=== PATIENT | female | born 1955 | race Caucasian/White ===

== ENCOUNTER 2019-11-28 12:57 | Emergency (ER) | payer BC ==
--- NOTE | 2019-11-28 14:17 | RAD REPORT ---
EXAM DESCRIPTION: RAD - Elbow Left 3 View - 11/28/2019 2:11 pm CLINICAL HISTORY: fall Pain COMPARISON: No comparisons FINDINGS: No fracture or dislocation seen.
--- NOTE | 2019-11-28 14:25 | RAD REPORT ---
EXAM DESCRIPTION: RAD - Wrist Left 3 View - 11/28/2019 2:15 pm CLINICAL HISTORY: fall Pain COMPARISON: No comparisons FINDINGS: Mild degenerative changes involve the radiocarpal joint as well as the first carpometacarp al joint. Soft tissue swelling is seen posteriorly. A small nondisplaced triquetrum fracture along t he dorsal aspect is suspected.
--- NOTE | 2019-11-28 16:16 | EDPHYS ---
Physician Documentation [facility] Name: Ana Summers Age: 64 yrs Sex: Female : 1955 Arrival Date: 11/28/2019 Time: 12:59 Bed 27 Private MD: ED Physician Jordon Mario HPI: 11/28 13:51 This 64 yrs old Female presents to ER via Ambulatory with complaints of Arm jmm Injury. 13:51 The patient or guardian complains of injury, pain. Onset: The symptoms/episode jmm began/occurred acutely. 13:52 Modifying factors: The symptoms are alleviated by archana wrap. Associated signs and jmm symptoms: Pertinent positives: swelling. This is a 64 year old female with a history of htn, arthritis, hepatitis that presents to the ED with complaints of left wrist pain which radiates to the left elbow. Patient states she fell on her left side yesterday from a standing position. . Historical: - Allergies: 13:13 PENICILLINS; aj1 - Home Meds: 13:13 Lisinopril Oral [Active]; Naproxen Oral [Active]; aj1 - PMHx: 13:13 Hypertension; Arthritis; Hepatitis; C; aj1 - Immunization history:: Flu vaccine is not up to date. - Social history:: Smoking status: Patient uses tobacco products, smokes one pack cigarettes per day. - Ebola Screening: : Patient denies travel to an Ebola-affected area in the 21 days before illness onset. ROS: 13:52 Constitutional: Negative for fever, chills, and weight loss, Cardiovascular: Negative jmm for chest pain, palpitations, and edema, Respiratory: Negative for shortness of breath, cough, wheezing, and pleuritic chest pain. 13:52 MS/extremity: Positive for injury or acute deformity, pain. 13:52 All other systems are negative. Exam: 13:52 Constitutional: This is a well developed, well nourished patient who is awake, alert, jmm and in no acute distress. Head/Face: atraumatic. Eyes: EOMI, no conjunctival erythema appreciated ENT: Moist Mucus Membranes Neck: Trachea midline, Supple Chest/axilla: Normal chest wall appearance and motion. Cardiovascular: Regular rate and rhythm. No edema appreciated Respiratory: Normal respirations, no respiratory distress appreciated Abdomen/GI: Non distended, soft Back: Normal ROM Skin: General appearance color normal 13:52 Musculoskeletal/extremity: ROM: intact in all extremities, swelling noted to the left wrist, distal radius and ulna are ttp, full radial pulse, compartments are soft, NVI. 13:52 Skin: Appearance: Color: normal in color. 13:52 Neuro: Orientation: is normal, Mentation: is normal, Memory: is normal. 13:52 Psych: Behavior/mood is pleasant, cooperative. Vital Signs: 13:13 BP 145 / 61; Pulse 79; Resp 18; Temp 98.1; Pulse Ox 97% on R/A; Weight 59.42 kg (R); aj1 Height 5 ft. 5 in. (165.10 cm) (R); Pain 0/10; 13:13 Body Mass Index 21.80 (59.42 kg, 165.10 cm) aj Procedures: 16:13 Splinting: Splint applied to left arm using sling, sugar tong. applied by tech. brandon Examined by me, post splint application: neurovascular intact, 2+ distal pulses palpable, brisk capillary refill noted, Patient tolerated well. MDM: 13:44 Patient medically screened. [facility] 16:13 Data reviewed: vital signs, nurses notes. Counseling: I had a detailed discussion with en the patient and/or guardian regarding: the historical points, exam findings, and any diagnostic results supporting the discharge/admit diagnosis, radiology results, the need for outpatient follow up, to return to the emergency department if symptoms worsen or persist or if there are any questions or concerns that arise at home. ED course: Patient advised to follow up with hand surgery for reevaluation. Patient otherwise given strict return precautions. Patient understood and agrees with the plan of care. . 11/28 13:23 Order name: Wrist Left (3 View) XRAY; Complete Time: 14:41 [facility] 11/28 13:23 Order name: Elbow Left 3 View XRAY; Complete Time: 14:41 [facility] 11/28 15:25 Order name: Sugar Tong Forearm Splint; Complete Time: 16:20 [facility] 11/28 15:25 Order name: Sling; Complete Time: 16:20 [facility] Administered Medications: No medications were administered Disposition: 16:54 Co-signature as Attending Physician, Jordon Mario MD I agree with the assessment and kdr plan of care. Disposition: 11/28/19 16:15 Discharged to Home. Impression: Nondisplaced fracture of triquetrum [cuneiform] bone, left wrist. - Condition is Stable. - Discharge Instructions: Wrist Pain. - Medication Reconciliation Form, Thank You Letter, Antibiotic Education, Prescription Opioid Use form. - Follow up: Noman Goetz MD; When: 2 - 3 days; Reason: Recheck today's complaints, Continuance of care, Re-evaluation by your physician. Follow up: Darvin Meraz MD; When: 2 - 3 days; Reason: Recheck today's complaints, Continuance of care, Re-evaluation by your physician. Signatures: Dispatcher [employer] EDMS Letty Sorensen RN RN aj1 Jordon Mario MD MD kdr Mickail, Joel, PA PA jmm Corrections: (The following items were deleted from the chart) 13:13 13:13 Social history: Smoking status: Patient/guardian denies using tobacco, aj1 aj1 16:24 16:15 11/28/2019 16:15 Discharged to Home. Impression: Nondisplaced fracture of aj1 triquetrum [cuneiform] bone, left wrist. Condition is Stable. Forms are Medication Reconciliation Form, Thank You Letter, Antibiotic Education, Prescription Opioid Use. Follow up: Noman Goetz; When: 2 - 3 days; Reason: Recheck today's complaints, Continuance of care, Re-evaluation by your physician. Follow up: Darvin Meraz; When: 2 - 3 days; Reason: Recheck today's complaints, Continuance of care, Re-evaluation by your physician. karen
--- NOTE | 2019-11-28 16:16 | ER ---
Nurse's Notes [facility] Name: Ana Summers Age: 64 yrs Sex: Female : 1955 Arrival Date: 11/28/2019 Time: 12:59 Bed 27 Private MD: Diagnosis: Nondisplaced fracture of triquetrum [cuneiform] bone, left wrist Presentation: 11/28 13:11 Presenting complaint: Patient states: She fell yesterday while trying to put some aj1 boards up on her porch. Reports that she landed on her left side and now she is having pain to her left forearm that is worse with movement. Swelling noted to left wrist. Transition of care: patient was not received from another setting of care. Onset of symptoms was 2019. Risk Assessment: Do you want to hurt yourself or someone else? Patient reports no desire to harm self or others. Initial Sepsis Screen: Does the patient meet any 2 criteria? No. Patient's initial sepsis screen is negative. Does the patient have a suspected source of infection? No. Patient's initial sepsis screen is negative. Care prior to arrival: None. 13:11 Method Of Arrival: Ambulatory aj 13:11 Acuity: CODEY 4 aj1 Triage Assessment: 13:13 General: Appears in no apparent distress. comfortable, Behavior is calm, cooperative, aj1 appropriate for age. Pain: Complains of pain in dorsal aspect of left forearm and palmar aspect of left forearm Pain currently is 0 out of 10 on a pain scale. at worst was 5 out of 10 on a pain scale. Musculoskeletal: Range of motion: intact in all extremities. Injury Description: Patient reports that she fell while trying to put boards up on her porch. Historical: - Allergies: 13:13 PENICILLINS; aj1 - Home Meds: 13:13 Lisinopril Oral [Active]; Naproxen Oral [Active]; aj1 - PMHx: 13:13 Hypertension; Arthritis; Hepatitis; C; aj1 - Immunization history:: Flu vaccine is not up to date. - Social history:: Smoking status: Patient uses tobacco products, smokes one pack cigarettes per day. - Ebola Screening: : Patient denies travel to an Ebola-affected area in the 21 days before illness onset. Screenin:15 Abuse screen: Denies threats or abuse. Denies injuries from another. Nutritional aj1 screening: No deficits noted. Tuberculosis screening: No symptoms or risk factors identified. 16:20 Fall Risk None identified. aj1 Assessment: 13:15 General: Appears in no apparent distress. comfortable, Behavior is calm, cooperative, aj1 appropriate for age. Pain: Complains of pain in palmar aspect of left forearm and dorsal aspect of left forearm Pain radiates to left arm Pain currently is 0 out of 10 on a pain scale. at worst was 5 out of 10 on a pain scale. Aggravated by repositioning. Neuro: Level of Consciousness is awake, alert, obeys commands, Oriented to person, place, time, situation. Cardiovascular: Patient's skin is warm and dry. Respiratory: Airway is patent Respiratory effort is even, unlabored, Respiratory pattern is regular, symmetrical. GI: No signs and/or symptoms were reported involving the gastrointestinal system. : No signs and/or symptoms were reported regarding the genitourinary system. EENT: No signs and/or symptoms were reported regarding the EENT system. Derm: No signs and/or symptoms reported regarding the dermatologic system. Skin is pink, warm \T\ dry. normal. Musculoskeletal: Circulation, motion, and sensation intact. Range of motion: intact in all extremities, Swelling present in left wrist. 14:12 Reassessment: Patient appears in no apparent distress at this time. No changes from aj1 previously documented assessment. Patient and/or family updated on plan of care and expected duration. Pain level reassessed. Patient is alert, oriented x 3, equal unlabored respirations, skin warm/dry/pink. 15:16 Reassessment: Patient appears in no apparent distress at this time. No changes from aj1 previously documented assessment. Patient and/or family updated on plan of care and expected duration. Pain level reassessed. Patient is alert, oriented x 3, equal unlabored respirations, skin warm/dry/pink. 16:15 Reassessment: Patient appears in no apparent distress at this time. No changes from aj1 previously documented assessment. Patient and/or family updated on plan of care and expected duration. Pain level reassessed. Patient is alert, oriented x 3, equal unlabored respirations, skin warm/dry/pink. Vital Signs: 13:13 BP 145 / 61; Pulse 79; Resp 18; Temp 98.1; Pulse Ox 97% on R/A; Weight 59.42 kg (R); aj1 Height 5 ft. 5 in. (165.10 cm) (R); Pain 0/10; 13:13 Body Mass Index 21.80 (59.42 kg, 165.10 cm) aj1 ED Course: 12:59 Patient arrived in ED. rg4 13:04 Saman Guy PA is PHCP. [facility] 13:04 Jordon Mario MD is Attending Physician. [facility] 13:11 Letty Sorensen, RN is Primary Nurse. aj1 13:12 Triage completed. aj1 13:13 Arm band placed on Patient placed in an exam room. aj1 13:15 Patient has correct armband on for positive identification. Bed in low position. Call aj1 light in reach. 13:15 No provider procedures requiring assistance completed. aj1 14:11 Wrist Left (3 View) XRAY In Process Unspecified. EDMS 14:11 Elbow Left 3 View XRAY In Process Unspecified. EDMS 16:14 Noman Goetz MD is Referral Physician. jmm 16:14 Darvin Meraz MD is Referral Physician. jm 16:19 Orthoglass splint: Sugar tong splint applied on left arm. Sling applied to left arm. lt1 16:20 Patient did not have IV access during this emergency room visit. aj1 Administered Medications: No medications were administered Outcome: 16:15 Discharge ordered by MD. jm 16:23 Discharged to home ambulatory. aj1 16:23 Condition: good 16:23 Discharge instructions given to patient, Instructed on discharge instructions, follow up and referral plans. splint care Demonstrated understanding of instructions, follow-up care, splint care. 16:24 Patient left the ED. aj1 Signatures: Dispatcher [employer] EDMS Letty Sorensen, RN RN aj1 Saman Guy PA PA Sylvia Araujo rg4 Cherie Horner [facility] Corrections: (The following items were deleted from the chart) 13:13 13:13 Social history: Smoking status: Patient/guardian denies using tobacco, aj1 aj1
[2019-11-28 16:30] VITALS: BP 145/61; TEMP 98.1; O2SAT 97
== END 2019-11-28 16:24 | disposition home or self-care (01) ==
LOC: ER 12:57
PROC: 2W3DX1Z Immobilization of Left Lower Arm using Splint (ICD-10-PCS; principal; 2019-11-28)
DX: S62.115A Nondisplaced fracture of triquetrum [cuneiform] bone, left wrist, initial encounter for closed fracture (principal); W19.XXXA Unspecified fall, initial encounter; Y93.9 Activity, unspecified; Y92.9 Unspecified place or not applicable; Z88.0 Allergy status to penicillin; F17.210 Nicotine dependence, cigarettes, uncomplicated; I10 Essential (primary) hypertension
CPT/HCPCS: 99283

== ENCOUNTER 2023-01-03 09:37 | Emergency (ER) | payer BC, MEDICARE ==
--- OUTSIDE RECORDS SUMMARY | 2023-01-03 09:42 | XMS REPORT | Continuity of Care Document ---
:1955 Author Organization [facility] t Address [facility] [place] [address] Care Team Providers Name Role Phone MARIAMA BARLOW Attending Clinician Unavailable Abdelrahman STEVE, Zhou Shepard Attending Clinician Deejay Guthrie Attending Clinician [facility] Attending Clinician Unavailable DEEJAY HUFF Attending Clinician Unavailable KAE DIAZ Attending Clinician Unavailable Ricardo Shirley MD Attending Clinician Maurice Maldonado Attending Clinician Doctor Unassigned, [place] Attending Clinician Unavailable Ramírez Delacruz MD Attending Clinician Walter Marin MD Attending Clinician WALTER MARIN Attending Clinician Unavailable Payers Payer Name Policy Type Policy Number Effective Date Expiration Date S [facility] [id number] 2021 (MEDICARE 00:00:00 REPLACEMENT HMO) Problems Condition Condition Condition Status Onset Resolution Last Treating Co mments Source Name Details Category Date Date Treatment Clinician Date History of History of Disease Active 2017-11 U nivers hepatitis hepatitis 2-12 ity of C C 00:00: [address] Tobacco Tobacco Disease Active 2017-11 Univers abuse abuse 2-12 ity of 00:00: [address] Essential Essential Disease Active 2017-11 Uni vers hypertensi hypertensi 2-12 it y of on on 00:00: [address] H/O H/O Disease Active Overview: Univer s colonoscop colonoscop 12-17 Outside i ty of y y 00:00: records, [place] 00 reported Medical normal. Branch Allergies, Adverse Reactions, Alerts Allergy Allergy Status Severity Reaction(s) Onset Inactive Treating Comm ents Source Name Type Date Date Clinician PENICILL DRUG Active Unknown-Cmnt Un kal IN G INGREDI 12-17 ity of 00:00: [place] 00 Medical Branch Penicill Propensi Active Unknown - Uni vers in G ty to See comments 12-17 ity of adverse 00:00: [place] reaction 00 Medical s to Branch drug Social History Social Habit Start Date Stop Date Quantity Comments Source Exposure to Not sure [facility] SARS-CoV-2 (event) [facility] History of tobacco Cigarette Smoker University of use [facility] Sex Assigned At Universit y of [facility] Tobacco use and 2020-09-24 2020-09-24 Current user Univers ity of exposure 00:00:00 00:00:00 [facility] Cigarettes smoked 2020-09-24 2020-09-24 Univers ity of current (pack per 00:00:00 00:00:00 [place] ) - Reported Branch Alcohol intake 2020-09-24 2020-09-24 Current drinker Unive rsity of 00:00:00 00:00:00 of alcohol [facility] (finding) [place] Alcohol Comment 2012-12-17 2012-12-17 beer Universit y of 00:00:00 00:00:00 [facility] Smoking Status Start Date Stop Date Source Current every day smoker 2020-09-24 00:00:00 Uni versity of [facility] Medications Ordered Filled Start Stop Current Ordering Indication Dosage Frequency Signature Comments Components Source Medication Medication Date Date Medication? Clinician (SIG) Name Name naproxen 2019-11 Yes 250mg Take 250 Univ ers 250 mg 1-04 mg by ity of tablet 16:45: mouth 2 [place] 29 (two) Medical times Branch daily with meals. naproxen 2019-11 Yes 250mg Take 250 Univ ers 250 mg 1-04 mg by ity of tablet 16:45: mouth 2 [place] 29 (two) Medical times Branch daily with meals. naproxen 2019-11 Yes 250mg Take 250 Univ ers 250 mg 1-04 mg by ity of tablet 16:45: mouth 2 [place] 29 (two) Medical times Branch daily with meals. naproxen 2019-11 Yes 250mg Take 250 Univ ers 250 mg 1-04 mg by ity of tablet 16:45: mouth 2 [place] 29 (two) Medical times Branch daily with meals. naproxen 2019-11 Yes 250mg Take 250 Univ ers 250 mg 1-04 mg by ity of tablet 16:45: mouth 2 [place] 29 (two) Medical times Branch daily with meals. naproxen 2019-11 Yes 250mg Take 250 Univ ers 250 mg 1-04 mg by ity of tablet 16:45: mouth 2 [place] 29 (two) Medical times Branch daily with meals. lisinopriL- 2019-11 Yes [id number] 1{tbl} Take 1 Univers hydrochloro 1-04 tablet by ity of thiazide 00:00: mouth [place] 20-25 mg 00 daily. Medical per tablet Branch lisinopriL- 2019-11 Yes [id number] 1{tbl} Take 1 Univers hydrochloro 1-04 tablet by ity of thiazide 00:00: mouth [place] 20-25 mg 00 daily. Medical per tablet Branch lisinopriL- 2019-11 Yes [id number] 1{tbl} Take 1 Univers hydrochloro 1-04 tablet by ity of thiazide 00:00: mouth [place] 20-25 mg 00 daily. Medical per tablet Branch lisinopriL- 2019-11 Yes [id number] 1{tbl} Take 1 Univers hydrochloro 1-04 tablet by ity of thiazide 00:00: mouth [place] 20-25 mg 00 daily. Medical per tablet Branch lisinopriL- 2019-11 Yes [id number] 1{tbl} Take 1 Univers hydrochloro 1-04 tablet by ity of thiazide 00:00: mouth [place] 20-25 mg 00 daily. Medical per tablet Branch lisinopriL2019-11 Yes [id number] 1{tbl} Take 1 Univers hydrochloro 1-04 tablet by ity of thiazide 00:00: mouth [place] 20-25 mg 00 daily. Medical per tablet Branch LISINOPRIL2018-11 Yes TAKE 1 Univ ers HYDROCHLORO 2-04 TABLET BY ity of THIAZIDE 00:00: MOUTH [place] 20-25 mg 00 EVERY DAY Medica l per tablet Branch LISINOPRIL- 2018-11 Yes TAKE 1 Univ ers HYDROCHLORO 2-04 TABLET BY ity of THIAZIDE 00:00: MOUTH [place] 20-25 mg 00 EVERY DAY Medica l per tablet Branch LISINOPRIL- 2018-11 Yes TAKE 1 Univ ers HYDROCHLORO 2-04 TABLET BY ity of THIAZIDE 00:00: MOUTH [place] 20-25 mg 00 EVERY DAY Medica l per tablet Branch LISINOPRIL- 2018-11 Yes TAKE 1 Univ ers HYDROCHLORO 2-04 TABLET BY ity of THIAZIDE 00:00: MOUTH [place] 20-25 mg 00 EVERY DAY Medica l per tablet Branch LISINOPRIL- 2018-11 Yes TAKE 1 Univ ers HYDROCHLORO 2-04 TABLET BY ity of THIAZIDE 00:00: MOUTH [place] 20-25 mg 00 EVERY DAY Medica l per tablet Branch LISINOPRIL- 2018-11 Yes TAKE 1 Univ ers HYDROCHLORO 2-04 TABLET BY ity of THIAZIDE 00:00: MOUTH [place] 20-25 mg 00 EVERY DAY Medica l per tablet Branch LISINOPRIL- 2018-11 Yes TAKE 1 Univ ers HYDROCHLORO 2-04 TABLET BY ity of THIAZIDE 00:00: MOUTH [place] 20-25 mg 00 EVERY DAY Medica l per tablet Branch LISINOPRIL- 2018-11 Yes TAKE 1 Univ ers HYDROCHLORO 2-04 TABLET BY ity of THIAZIDE 00:00: MOUTH [place] 20-25 mg 00 EVERY DAY Medica l per tablet Branch LISINOPRIL- 2018-11 Yes TAKE 1 Univ ers HYDROCHLORO 2-04 TABLET BY ity of THIAZIDE 00:00: MOUTH [place] 20-25 mg 00 EVERY DAY Medica l per tablet Branch LISINOPRIL- 2018-11 2020- No TAKE 1 Uni vers HYDROCHLORO 2-04 11-04 TABLET BY it y of THIAZIDE 00:00: 00:00 MOUTH [place] 20-25 mg 00 :00 EVERY DAY Medica l per tablet Branch LISINOPRIL- 2018-11 2020- No TAKE 1 Uni vers HYDROCHLORO 2-04 11-04 TABLET BY it y of THIAZIDE 00:00: 00:00 MOUTH [place] 20-25 mg 00 :00 EVERY DAY Medica l per tablet Branch cholestyram 2018-11 Yes [id number] 4g Take 1 Univers ine light 2-02 Packet by ity o f (CHOLESTYRA 00:00[place] MINE LIGHT[place] 00 needed for Me dical 4 gram Itching Branch powder (take when itching 2hours apart from other meds). cholestyram 2018-11 Yes [id number] 4g Take 1 Univers ine light 2-02 Packet by ity o f (CHOLESTYRA [place] MINE LIGHT[place] 00 needed for Me dical 4 gram Itching Branch powder (take when itching 2hours apart from other meds). cholestyram 2018-11 Yes [id number] 4g Take 1 Univers ine light 2-02 Packet by ity o f (CHOLESTYRA [place] MINE LIGHT[place] 00 needed for Me dical 4 gram Itching Branch powder (take when itching 2hours apart from other meds). cholestyram 2018-11 Yes [id number] 4g Take 1 Univers ine light 2-02 Packet by ity o f (CHOLESTYRA 00:[place]: [place] MINE LIGHT[place] 00 needed for Me dical 4 gram Itching Branch powder (take when itching 2hours apart from other meds). cholestyram 2018-11 Yes [id number] 4g Take 1 Univers ine light 2-02 Packet by ity o f (CHOLESTYRA 00:[place]: [place] M[place] LIGHT[place] 00 needed for Me dical 4 gram Itching Branch powder (take when itching 2hours apart from other meds). cholestyram 2018-11 Yes [id number] 4g Take 1 Univers ine light 2-02 Packet by ity o f (CHOLESTYRA [place]: [place] MINE LIGHT[place] 00 needed for Me dical 4 gram Itching Branch powder (take when itching 2hours apart from other meds). cholestyram 2018-11 Yes [id number] 4g Take 1 Univers ine light 2-02 Packet by ity o f (CHOLESTYRA [place]: [place] MINE LIGHT[place] 00 needed for Me dical 4 gram Itching Branch powder (take when itching 2hours apart from other meds). cholestyram 2018-11 Yes [id number] 4g Take 1 Univers ine light 2-02 Packet by ity o f (CHOLESTYRA 00:[place]: [place] MINE LIGHT[place] 00 needed for Me dical 4 gram Itching Branch powder (take when itching 2hours apart from other meds). cholestyram 2018-11 Yes [id number] 4g Take 1 Univers ine light 2-02 Packet by ity o f (CHOLESTYRA [place]: [place] MINE LIGHT[place] 00 needed for Me dical 4 gram Itching Branch powder (take when itching 2hours apart from other meds). cholestyram 2018-11 Yes [id number] 4g Take 1 Univers ine light 2-02 Packet by ity o f (CHOLESTYRA [place]: [place] MINE LIGHT[place] 00 needed for Me dical 4 gram Itching Branch powder (take when itching 2hours apart from other meds). cholestyram 2018-11 Yes [id number] 4g Take 1 Univers ine light 2-02 Packet by ity o f (CHOLESTYRA [place]: [place] MINE LIGHT[place] 00 needed for Me dical 4 gram Itching Branch powder (take when itching 2hours apart from other meds). cholestyram 2018-11 Yes [id number] 4g Take 1 Univers ine light 2-02 Packet by ity o f (CHOLESTYRA 00:00: [place] MINE LIGHT[place] 00 needed for Me dical 4 gram Itching Branch powder (take when itching 2hours apart from other meds). cholestyram 2018-11 Yes [id number] 4g Take 1 Univers ine light 2-02 Packet by ity o f (CHOLESTYRA 00:00: [place] MINE LIGHT[place] 00 needed for Me dical 4 gram Itching Branch powder (take when itching 2hours apart from other meds). cholestyram 2018-11 Yes [id number] 4g Take 1 Univers ine light 2-02 Packet by ity o f (CHOLESTYRA [place]: [place] MINE LIGHT[place] 00 needed for Me dical 4 gram Itching Branch powder (take when itching 2hours apart from other meds). cholestyram 2018-11 Yes [id number] 4g Take 1 Univers ine light 2-02 Packet by ity o f (CHOLESTYRA 00:[place]: [place] MINE LIGHT[place] 00 needed for Me dical 4 gram Itching Branch powder (take when itching 2hours apart from other meds). naproxen Yes 250mg Take 250 Univ ers 250 mg 2-06 mg by ity of tablet 19:35: mouth 2 [place] 09 (two) Medical times Branch daily with meals. naproxen 0 Yes 250mg Take 250 Univ ers 250 mg 2-06 mg by ity of tablet 19:35: mouth 2 (two) Medical times Branch daily with meals. naproxen 2019-0 Yes 250mg Take 250 Univ ers 250 mg 2-06 mg by ity of tablet 19:35: mouth 2 (two) Medical times Branch daily with meals. naproxen 2019-0 Yes 250mg Take 250 Univ ers 250 mg 2-06 mg by ity of tablet 19:35: mouth 2 (two) Medical times Branch daily with meals. naproxen 2019-0 Yes 250mg Take 250 Univ ers 250 mg 2-06 mg by ity of tablet 19:35: mouth 2 (two) Medical times Branch daily with meals. naproxen 2019-0 Yes 250mg Take 250 Univ ers 250 mg 2-06 mg by ity of tablet 19:35: mouth 2 (two) Medical times Branch daily with meals. naproxen 2019-0 Yes 250mg Take 250 Univ ers 250 mg 2-06 mg by ity of tablet 19:35: mouth 2 (two) Medical times Branch daily with meals. naproxen 2019-0 Yes 250mg Take 250 Univ ers 250 mg 2-06 mg by ity of tablet 19:35: mouth 2 (two) Medical times Branch daily with meals. naproxen 2019-0 Yes 250mg Take 250 Univ ers 250 mg 2-06 mg by ity of tablet 19:35: mouth 2 (two) Medical times Branch daily with meals. albuterol 2017-11 Yes 2{puff} Inhale 2 U nivers (PROAIR 2-31 Puffs ity of HFA) 90 00:00: every 4 [place] mcg/actuati 00 (four) Medica l on inhaler hours as Branc h needed for Wheezing or Shortness of Breath. albuterol 2017-11 Yes 2{puff} Inhale 2 U nivers (PROAIR 2-31 Puffs ity of HFA) 90 00:00: every 4 [place] mcg/actuati 00 (four) Medica l on inhaler hours as Branc h needed for Wheezing or Shortness of Breath. albuterol 2017-11 Yes 2{puff} Inhale 2 U nivers (PROAIR 2-31 Puffs ity of HFA) 90 00:00: every 4 [place] mcg/actuati 00 (four) Medica l on inhaler hours as Branc h needed for Wheezing or Shortness of Breath. albuterol 2017-11 Yes 2{puff} Inhale 2 U nivers (PROAIR 2-31 Puffs ity of HFA) 90 00:00: every 4 [place] mcg/actuati 00 (four) Medica l on inhaler hours as Branc h needed for Wheezing or Shortness of Breath. albuterol 2017-11 Yes 2{puff} Inhale 2 U nivers (PROAIR 2-31 Puffs ity of HFA) 90 00:00: every 4 [place] mcg/actuati 00 (four) Medica l on inhaler hours as Branc h needed for Wheezing or Shortness of Breath. albuterol 2017-11 Yes 2{puff} Inhale 2 U nivers (PROAIR 2-31 Puffs ity of HFA) 90 00:00: every 4 [place] mcg/actuati 00 (four) Medica l on inhaler hours as Branc h needed for Wheezing or Shortness of Breath. albuterol 2017-11 Yes 2{puff} Inhale 2 U nivers (PROAIR 2-31 Puffs ity of HFA) 90 00:00: every 4 [place] mcg/actuati 00 (four) Medica l on inhaler hours as Branc h needed for Wheezing or Shortness of Breath. albuterol 2017-11 Yes 2{puff} Inhale 2 U nivers (PROAIR 2-31 Puffs ity of HFA) 90 00:00: every 4 [place] mcg/actuati 00 (four) Medica l on inhaler hours as Branc h needed for Wheezing or Shortness of Breath. albuterol 2017-11 Yes 2{puff} Inhale 2 U nivers (PROAIR 2-31 Puffs ity of HFA) 90 00:00: every 4 [place] mcg/actuati 00 (four) Medica l on inhaler hours as Branc h needed for Wheezing or Shortness of Breath. albuterol 2017-11 Yes 2{puff} Inhale 2 U nivers (PROAIR 2-31 Puffs ity of HFA) 90 00:00: every 4 [place] mcg/actuati 00 (four) Medica l on inhaler hours as Branc h needed for Wheezing or Shortness of Breath. albuterol 2017-11 Yes 2{puff} Inhale 2 U nivers (PROAIR 2-31 Puffs ity of HFA) 90 00:00: every 4 [place] mcg/actuati 00 (four) Medica l on inhaler hours as Branc h needed for Wheezing or Shortness of Breath. albuterol 2017-11 Yes 2{puff} Inhale 2 U nivers (PROAIR 2-31 Puffs ity of HFA) 90 00:00: every 4 [place] mcg/actuati 00 (four) Medica l on inhaler hours as Branc h needed for Wheezing or Shortness of Breath. albuterol 2017-11 Yes 2{puff} Inhale 2 U nivers (PROAIR 2-31 Puffs ity of HFA) 90 00:00: every 4 [place] mcg/actuati 00 (four) Medica l on inhaler hours as Branc h needed for Wheezing or Shortness of Breath. albuterol 2017-11 Yes 2{puff} Inhale 2 U nivers (PROAIR 2-31 Puffs ity of HFA) 90 00:00: every 4 [place] mcg/actuati 00 (four) Medica l on inhaler hours as Branc h needed for Wheezing or Shortness of Breath. albuterol 2017-11 Yes 2{puff} Inhale 2 U nivers (PROAIR 2-31 Puffs ity of HFA) 90 00:00: every 4 [place] mcg/actuati 00 (four) Medica l on inhaler hours as Branc h needed for Wheezing or Shortness of Breath. Immunizations Ordered Filled Immunization Date Status Comments Sour e Immunization Name Name Twinrix (hep a/hep 2019-10-22 Completed Univer sity of b) 00:00:00 [facility] Twinrix (hep a/hep 2019-10-22 Completed Univer sity of b) 00:00:00 [facility] Twinrix (hep a/hep 2019-10-22 Completed Univer sity of b) 00:00:00 [facility] Twinrix (hep a/hep 2019-10-22 Completed Univer sity of b) 00:00:00 [facility] Twinrix (hep a/hep 2019-10-22 Completed Univer sity of b) 00:00:00 [place] [facility] Twinrix (hep a/hep 2019-10-22 Completed Univer sity of b) 00:00:00 [place] [facility] Twinrix (hep a/hep 2019-10-22 Completed Univer sity of b) 00:00:00 [place] [facility] Twinrix (hep a/hep 2019-10-22 Completed Univer sity of b) 00:00:00 [place] [facility] Twinrix (hep a/hep 2019-10-22 Completed Univer sity of b) 00:00:00 [place] [facility] Twinrix (hep a/hep 2019-10-22 Completed Univer sity of b) 00:00:00 [place] [facility] Twinrix (hep a/hep 2019-10-22 Completed Univer sity of b) 00:00:00 [facility] Branch Twinrix (hep a/hep 2019-10-22 Completed Univer sity of b) 00:00:00 [place] [facility] Twinrix (hep a/hep 2019-10-22 Completed Univer sity of b) 00:00:00 [place] [facility] Twinrix (hep a/hep 2019-10-22 Completed Univer sity of b) 00:00:00 [place] [facility] Twinrix (hep a/hep 2019-10-22 Completed Univer sity of b) 00:00:00 [facility] Branch Twinrix (hep a/hep 2019-05-14 Completed Univer sity of b) 00:00:00 [place] [facility] Twinrix (hep a/hep 2019-05-14 Completed Univer sity of b) 00:00:00 [place] [facility] Twinrix (hep a/hep 2019-05-14 Completed Univer sity of b) 00:00:00 [place] [facility] Twinrix (hep a/hep 2019-05-14 Completed Univer sity of b) 00:00:00 [place] [facility] Twinrix (hep a/hep 2019-05-14 Completed Univer sity of b) 00:00:00 [facility] Branch Twinrix (hep a/hep 2019-05-14 Completed Univer sity of b) 00:00:00 [place] [facility] Twinrix (hep a/hep 2019-05-14 Completed Univer sity of b) 00:00:00 [place] [facility] Twinrix (hep a/hep 2019-05-14 Completed Univer sity of b) 00:00:00 [place] [facility] Twinrix (hep a/hep 2019-05-14 Completed Univer sity of b) 00:00:00 [place] [facility] Twinrix (hep a/hep 2019-05-14 Completed Univer sity of b) 00:00:00 [place] [facility] Twinrix (hep a/hep 2019-05-14 Completed Univer sity of b) 00:00:00 [place] [facility] Twinrix (hep a/hep 2019-05-14 Completed Univer sity of b) 00:00:00 [facility] Branch Twinrix (hep a/hep 2019-05-14 Completed Univer sity of b) 00:00:00 [facility] Branch Twinrix (hep a/hep 2019-05-14 Completed Univer sity of b) 00:00:00 [facility] Branch Twinrix (hep a/hep 2019-05-14 Completed Univer sity of b) 00:00:00 [facility] Branch Twinrix (hep a/hep 2019-04-11 Completed Univer sity of b) 00:00:00 [facility] Branch Twinrix (hep a/hep 2019-04-11 Completed Univer sity of b) 00:00:00 [facility] Branch Twinrix (hep a/hep 2019-04-11 Completed Univer sity of b) 00:00:00 [facility] Branch Twinrix (hep a/hep 2019-04-11 Completed Univer sity of b) 00:00:00 [place] [facility] Twinrix (hep a/hep 2019-04-11 Completed Univer sity of b) 00:00:00 [facility] Branch Twinrix (hep a/hep 2019-04-11 Completed Univer sity of b) 00:00:00 [facility] Branch Twinrix (hep a/hep 2019-04-11 Completed Univer sity of b) 00:00:00 [facility] Branch Twinrix (hep a/hep 2019-04-11 Completed Univer sity of b) 00:00:00 [facility] Branch Twinrix (hep a/hep 2019-04-11 Completed Univer sity of b) 00:00:00 [facility] Branch Twinrix (hep a/hep 2019-04-11 Completed Univer sity of b) 00:00:00 [place] [facility] Twinrix (hep a/hep 2019-04-11 Completed Univer sity of b) 00:00:00 [place] [facility] Twinrix (hep a/hep 2019-04-11 Completed Univer sity of b) 00:00:00 [facility] Branch Twinrix (hep a/hep 2019-04-11 Completed Univer sity of b) 00:00:00 [facility] Branch Twinrix (hep a/hep 2019-04-11 Completed Univer sity of b) 00:00:00 [facility] Branch Twinrix (hep a/hep 2019-04-11 Completed Univer sity of b) 00:00:00 [facility] Vital Signs Vital Name Observation Time Observation Value Comments Source Systolic blood 2020-09-24 16:46:00 172 mm[Hg] Univer sity of pressure [facility] Diastolic blood 2020-09-24 16:46:00 78 mm[Hg] Unive rsity of pressure [facility] Heart rate 2020-09-24 16:46:00 96 /min Universi ty [facility] Body temperature 2020-09-24 16:38:00 36.5 Bernarda Univ ersity of [facility] Body height 2020-09-24 16:38:00 165.1 cm Universi ty [facility] Body weight 2020-09-24 16:38:00 56.518 kg Universi ty [facility] BMI 2020-09-24 16:38:00 20.73 kg/m2 Universi ty [facility] Body height 2020-01-14 21:50:00 165.1 cm Universi ty of [facility] Body weight 2020-01-14 21:50:00 59.421 kg Universi ty [facility] BMI 2020-01-14 21:50:00 21.80 kg/m2 Universi ty [facility] Systolic blood 2019-12-06 15:04:00 156 mm[Hg] Univer sity of pressure [facility] Diastolic blood 2019-12-06 15:04:00 74 mm[Hg] Unive rsity of pressure [facility] Heart rate 2019-12-06 15:04:00 103 /min Universi ty [facility] Respiratory rate 2019-12-06 15:04:00 18 /min [facility] Body height 2019-12-06 15:04:00 165.1 cm [facility] Body weight 2019-12-06 15:04:00 59.421 kg [facility] BMI 2019-12-06 15:04:00 21.80 kg/m2 [facility] Procedures Procedure Date / Time Performed Performing Clinician Sourc e DISABILITY/FMLA 2020-01-24 06:01:00 Doctor Unassigned, [facility] Encounters Start End Encounter Admission Attending Care Care Encounter Source Date/Time Date/Time Type Type Clinicians Facility Department ID 2023-01-01 2023-01-02 Emergency E YEN, SALLIENE [facility] [id number] [facility] 15:49:00 00:30:00 MARIAMA 2022-06-04 2022-06-04 Outpatient [facility] [id number] [facility] 03:33:00 03:33:00 0715 Medica l Group 2021-10-30 2021-10-30 Outpatient [facility] [id number] [facility] 01:00:00 01:00:00 1210 Medica l Group 2020-12-16 2020-12-[address] [facility] [id number] Univers 00:00:00 00:00:00 Zhou Y HEALTH [id number] i ty of [facility] [id number] [address] 2020-09-26 2020-09-[address] [facility] [id number] Univers 00:00:00 00:00:00 Deejay Y HEALTH [id number] i [id number] [id number] [address] 2020-09-24 2020-09-24 Bark Scaler [facility] UNIVERSIT [id number] Univers 12:14:59 12:29:59 Visit Refugio Deejay Y HEALTH [id number] ity of [id number] [id number] [facility] [address] [place] 2020-09-24 2020-09-24 Office ELISA Huff [id number] Univers 10:35:11 12:10:01 Visit [facility] [id number] i ty of [id number] [id number] [place] [id number] [place] 2020-09-24 2020-09-24 Outpatient R REFUGIO [facility] [id number] Univers 11:00:00 11:00:00 [facility] 2020-09-24 2020-09-24 Letter ELISA [place] 1..840.114 [id number] Univers 00:00:00 00:00:00 (Out) [facility] [id number] i ty [id number] [id number] [address] 2020-05-19 2020-05-19 Outpatient R REFUGIO [facility] [id number] Univers 11:00:00 11:00:00 [facility] 2020-04-23 2020-04-23 Outpatient Mitesh DIAZ [facility] [id number] Univers 13:00:00 13:00:00 KAE ordonez [facility] 2020-02-22 2020-02-22 Ricardo Almeida [facility] [id number] Univers 00:00:00 00:00:00 Radha Avila [id number] [place] Profess[place] [id number] Id dical nal 044 [facility] 2020-01-28 2020-01-28 Telephone Mason [facility] [id number] Univers 00:00:00 00:00:00 [facility] [id number] it y of Surgical [id number] [place] as Specialti [id number] Me dical es [id number] [facility] 2020-01-24 2020-01-24 Orders Doctor CHRISTY [id number] [id number] Univers 00:00:00 00:00:00 Only Unassigned, ROBERTA [id number] ity of [place] [facility] [id number] [place] as [id number] [address] 2020-01-18 2020-01-18 [facility] [id number] Univers 00:00:00 00:00:00 Ramírez Margarita [id number] i [id number] [phone] Id dical nal [id number] [facility] 2020-01-14 2020-01-14 Office [facility] [id number] Univers 15:36:03 16:05:50 Visit [facility] [id number] it y of Surgical [id number] [place] as Specialti [phone] Id dical es 198 [facility] 2020-01-14 2020-01-14 [facility] [id number] Univers 15:45:00 15:45:00 WALTER itsaritha of [facility] 2020-01-14 2020-01-14 Telephone [facility] [id number] Univers 00:00:00 00:00:00 [facility] [id number] it y of Surgical [id number] [place] as Specialti [phone] Id dical es 198 [facility] 2019-12-06 2019-12-06 Office [facility] [id number] Univers 09:03:26 09:23:58 Visit [facility] [id number] it y of Surgical [id number] [place] as Specialti [phone] Id dical es 198 [facility] Results This patient has no known results.
[2023-01-03] MEDS ORDERED: KETOROLAC 30 MG/ML INJ ONE (10:02)
--- NOTE | 2023-01-03 11:05 | ER ---
Nurse's Notes [facility] Name: Ana Summers Age: 67 yrs Sex: Female : 1955 Arrival Date: 01/03/2023 Time: 09:39 Bed 20 Private MD: Junior Campbell E Diagnosis: Fracture of upper end of humerus Presentation: 01/03 09:53 Chief complaint: Patient states: fell Tuesday in [place], went to [place] [id number] [place], has broken right arm but needs to make sure splint is in right place and needs an orthopedist for this area since the one given to her is in [place]. Coronavirus screen: Vaccine status: Patient reports being unvaccinated. Client denies travel out of the [place] in the last 14 days. Ebola Screen: Patient negative for fever greater than or equal to 101.5 degrees Fahrenheit, and additional compatible Ebola Virus Disease symptoms Patient denies exposure to infectious person. Patient denies travel to an Ebola-affected area in the 21 days before illness onset. Initial Sepsis Screen: Does the patient meet any 2 criteria? No. Patient's initial sepsis screen is negative. Does the patient have a suspected source of infection? No. Patient's initial sepsis screen is negative. Risk Assessment: Do you want to hurt yourself or someone else? Patient reports no desire to harm self or others. 09:53 Method Of Arrival: Wheelchair [facility] 09:53 Acuity: CODEY 3 5 10:07 Onset of symptoms was January 01, 2023. ap3 Triage Assessment: 09:57 General: Appears in no apparent distress. uncomfortable, slender, Behavior is calm, 5 cooperative, appropriate for age. Pain: Complains of pain in right arm. Historical: - Allergies: 09:57 PENICILLINS; jh5 - PMHx: 09:57 Arthritis; Hepatitis; C; Hypertension; jh5 - Immunization history:: Adult Immunizations up to date. - Social history:: Smoking status: Patient reports the use of cigarette tobacco products, smokes one pack cigarettes per day. Screenin:06 [facility] ED Fall Risk Assessment (Adult) History of falling in the last 3 months, ap3 including since admission Yes- single mechanical fall (1 pt) Confusion or Disorientation No (0 pts) Intoxicated or Sedated No (0 pts) Impaired Gait Yes (1 pt) Mobility Assist Device Used No (0 pt) Altered Elimination No (0 pt). Abuse screen: Denies threats or abuse. Nutritional screening: No deficits noted. Tuberculosis screening: No symptoms or risk factors identified. Vital Signs: 09:53 BP 141 / 52; Pulse 98; Resp 18; Temp 98.6; Pulse Ox 100% ; Weight 56.7 kg; Height 5 ft. 5 4 in. (162.56 cm); Pain 10/10; 10:45 BP 114 / 44; Pulse 76; Pulse Ox 100% on R/A; ap3 09:53 Body Mass Index 21.46 (56.70 kg, 162.56 cm) 5 ED Course: 09:39 Patient arrived in ED. am2 09:39 Junior Campbell MD is Private Physician. am2 09:43 Vahid Gregory MD is Attending Physician. bs3 09:50 Lupe Ty, RN is Primary Nurse. ap3 09:57 Triage completed. [facility] 09:57 Arm band placed on left wrist. 5 10:07 Allergy band placed. Bed in low position. Call light in reach. Side rails up X 1. Adult ap3 w/ patient. Pulse ox on. NIBP on. 11:04 Tyron Mcallister MD is Referral Physician. bs3 11:22 No provider procedures requiring assistance completed. Patient did not have IV access ap3 during this emergency room visit. Administered Medications: 10:06 Drug: Ketorolac 30 mg Route: IM; Site: left deltoid; ap3 11:22 Follow up: Response: No adverse reaction; Pain is decreased ap3 Medication: 10:07 VIS not applicable for this client. ap3 Outcome: 11:05 Discharge ordered by . bs3 11:22 Discharged to home with family. ap3 11:22 Condition: good 11:22 Discharge instructions given to patient, Instructed on discharge instructions, follow up and referral plans. Demonstrated understanding of instructions, follow-up care. 11:50 Patient left the ED. ap3 Signatures: Lupe Macario am2 Lupe Ty, HARMAN RN ap3 Angie Sampson RN RN jh5 Vahid Gregory MD MD bs3
--- NOTE | 2023-01-03 11:05 | EDPHYS ---
Physician Documentation [facility] Name: Ana Summers Age: 67 yrs Sex: Female : 1955 Arrival Date: 01/03/2023 Time: 09:39 Bed 20 Private MD: Junior Campbell E ED Physician Vahid Gregory HPI: 01/03 09:52 This 67 yrs old Female presents to ER via Unassigned with complaints of Arm bs3 Pain - right. 09:52 67yo hx of smoking, hep c, htn presents with right arm pain after a fall. She reports bs3 slipping and falling in a parking lot over a on Tuesday hitting the right side of her head right shoulder she was seen at an outside hospital where CT is and imaging was done and she was found to have a fracture of her right arm she was placed in a splint and presents because she has no follow-up and because she has pain her pain is worse with touching and moving her arm she denies any numbness tingling or weakness she notes that she cannot take the medicine that she was prescribed. Historical: - Allergies: 09:57 PENICILLINS; jh5 - PMHx: 09:57 Arthritis; Hepatitis; C; Hypertension; jh5 - Immunization history:: Adult Immunizations up to date. - Social history:: Smoking status: Patient reports the use of cigarette tobacco products, smokes one pack cigarettes per day. ROS: 09:52 Constitutional: Negative for fever, chills bs3 09:52 All other systems are negative. Exam: 09:52 Constitutional: This is a well developed, well nourished patient who is awake, alert, bs3 and in no acute distress. Head/Face: Bruising to the right side of her face Eyes: Pupils equal round and reactive to light, extra-ocular motions intact. Lids and lashes normal. ENT: mmm, no posterior phyarngeal erythema poor dentition Neck: Trachea midline, no thyromegaly, no neck stiffness Chest/axilla: Bruising to her right chest wall no deformity mild pain to palpation Cardiovascular: Regular rate and rhythm with a normal S1 and S2. symmetric pulses in upper extremities Respiratory: Lungs have equal breath sounds bilaterally, clear to auscultation, no respiratory distress MS/ Extremity: Her right arm is in a coaptation splint she has a good radial pulse she has normal capillary refill normal strength in her fingers her sensation is intact in her first third and fifth digit Neuro: Awake and alert, GCS 15, oriented to person, place, time, and situation. Cranial nerves II-XII grossly intact. Motor strength 5/5 in all extremities. Sensory grossly intact. Psych: Awake, alert, with orientation to person, place and time. Behavior, mood, and affect are within normal limits. Vital Signs: 09:53 BP 141 / 52; Pulse 98; Resp 18; Temp 98.6; Pulse Ox 100% ; Weight 56.7 kg; Height 5 ft. jh5 4 in. (162.56 cm); Pain 10/10; 10:45 BP 114 / 44; Pulse 76; Pulse Ox 100% on R/A; ap3 09:53 Body Mass Index 21.46 (56.70 kg, 162.56 cm) jh5 MDM: 09:44 Patient medically screened. bs3 09:52 Differential diagnosis: dislocation, closed fracture, contusion. Data reviewed: vital bs3 signs, nurses notes. ED course: We will get x-rays to assess the type of fracture patient has an refer to orthopedics will treat pain. 10:51 Independent interpretation of the following test(s) in the Emergency Department X-Ray: bs3 My interpretation is prox humerus fx. ED course: will remove coaptation splint, place in sling, f/u with Dr. Mcallister. 01/03 09:51 Order name: Shoulder Right (2 View) XRAY bs3 01/03 09:51 Order name: Humerus Right XRAY bs3 Administered Medications: 10:06 Drug: Ketorolac 30 mg Route: IM; Site: left deltoid; ap3 11:22 Follow up: Response: No adverse reaction; Pain is decreased ap3 Disposition Summary: 01/03/23 11:05 Discharge Ordered Location: Home bs3 Problem: new bs3 Symptoms: have improved bs3 Condition: Stable bs3 Diagnosis - Fracture of upper end of humerus bs3 Followup: bs3 - With: Tyron Mcallister MD - When: 5 - 6 days - Reason: Recheck today's complaints Discharge Instructions: - Discharge Summary Sheet bs3 - Humerus Fracture Treated With Immobilization, [id number] bs3 Forms: - Medication Reconciliation Form bs3 - Thank You Letter bs3 - Antibiotic Education bs3 - Prescription Opioid Use bs3 Signatures: Dispatcher [employer] Lupe Hernandez RN RN ap3 Angie Sampson RN RN jh5 Vahid Gregory MD MD bs3
--- NOTE | 2023-01-03 11:49 | RAD REPORT ---
EXAM DESCRIPTION: RAD - Humerus Right - 01/03/2023 10:27 am CLINICAL HISTORY: DEFORMITY COMPARISON: No comparisons FINDINGS: Mildly impacted fracture seen proximal right humerus. No dislocation.
--- NOTE | 2023-01-03 11:49 | RAD REPORT ---
EXAM DESCRIPTION: RAD - Shoulder Right 2 View - 01/03/2023 10:27 am CLINICAL HISTORY: DEFORMITY COMPARISON: No comparisons FINDINGS: Mildly impacted fracture proximal right humerus. No dislocation.
[2023-01-03 11:54] VITALS: TEMP 98.6; O2SAT 100
[2023-01-03 11:55] VITALS: BP 114/44
== END 2023-01-03 11:50 | disposition home or self-care (01) ==
LOC: ER 09:37
DX: S42.201A Unspecified fracture of upper end of right humerus, initial encounter for closed fracture (principal); F17.210 Nicotine dependence, cigarettes, uncomplicated; I10 Essential (primary) hypertension; Z88.0 Allergy status to penicillin
CPT/HCPCS: 96372; 99283

== ENCOUNTER 2023-01-09 10:50 | Emergency (ER) | payer MEDICARE ==
--- OUTSIDE RECORDS SUMMARY | 2023-01-09 11:23 | XMS REPORT | Continuity of Care Document ---
:1955 Author Organization [facility] t Address [facility] [place] [address] Care Team Providers Name Role Phone LOGANTIANNASTIVENRHONAMARIAMADELORES DUVALL Attending Clinician Unavailable Abdelrahman STEVE, Zhou Shepard Attending Clinician Deejay Gutrhie Attending Clinician [facility] Attending Clinician Unavailable DEEJAY HUFF Attending Clinician Unavailable KAE DIAZ Attending Clinician Unavailable Ricardo Shirley MD Attending Clinician Maurice Maldonado Attending Clinician Doctor Unassigned, [place] Attending Clinician Unavailable Ramírez Delacruz MD Attending Clinician Walter Marin MD Attending Clinician WALTER MARIN Attending Clinician Unavailable Payers Payer Name Policy Type Policy Number Effective Date Expiration Date S alecia [employer] [id number] 2021 (MEDICARE 00:00:00 REPLACEMENT HMO) Problems Condition Condition Condition Status Onset Resolution Last Treating Co mments Source Name Details Category Date Date Treatment Clinician Date History of History of Disease Active 2017-11 U nivers hepatitis hepatitis 2-12 ity of C C 00:00: [address] Tobacco Tobacco Disease Active 2017-11 Univers abuse abuse 2-12 ity of 00:00: [address] Essential Essential Disease Active 2017-11 Uni vers hypertensi hypertensi 2-12 it y of on on 00:00: [address] H/O H/O Disease Active Overview: Univer [...] Quantity Comments Source Exposure to Not sure [facility] SARS-CoV-2 (event) [facility] History of tobacco Cigarette Smoker University of use [facility] Sex Assigned At Universit y of [facility] Tobacco use and 2020-09-24 2020-09-24 Current user Univers ity of exposure 00:00:00 00:00:00 [facility] Cigarettes smoked 2020-09-24 2020-09-24 Univers ity of current (pack per 00:00:00 00:00:00 ) - Reported Branch Alcohol intake 2020-09-24 2020-09-24 Current drinker Unive rsity of 00:00:00 00:00:00 of alcohol [facility] (finding) [place] Alcohol Comment 2012-12-17 2012-12-17 beer Universit y of 00:00:00 00:00:00 [facility] Smoking Status Start Date Stop Date Source Current every day smoker 2020-09-24 00:00:00 Uni versity of [facility] Medications Ordered Filled Start Stop Current Ordering Indication Dosage Frequency Signature Comments Components Source Medication Medication Date Date Medication? Clinician (SIG) Name Name naproxen 2019-11 Yes 250mg Take 250 Univ ers 250 mg 1-04 mg by ity of tablet 16:45: mouth 2 [place] (two) Medical times [place] daily with meals. naproxen 2019-11 Yes 250mg Take 250 Univ ers 250 mg 1-04 mg by ity of tablet 16:45: mouth 2 [place] (two) Medical times [place] daily with meals. naproxen 2019-11 Yes 250mg Take 250 Univ ers 250 mg 1-04 mg by ity of tablet 16:45: mouth 2 [place] 29 (two) Medical times Branch daily with meals. naproxen 2019-11 Yes 250mg Take 250 Univ ers 250 mg 1-04 mg by ity of tablet 16:45: mouth 2 [place] 29 (two) Medical times Branch daily with meals. naproxen 2019-11 Yes 250mg Take 250 Univ ers 250 mg 1-04 mg by ity of tablet 16:45: mouth 2 [place] 29 (two) Medical times Branch daily with meals. naproxen 2019-11 Yes 250mg Take 250 Univ ers 250 mg 1-04 mg by ity of tablet 16:45: mouth 2 [place] 29 (two) Medical times Branch daily with meals. lisinopriL- 2019-11 Yes [id number] 1{tbl} Take 1 Univers hydrochloro 1-04 tablet by ity of thiazide 00:00: mouth [place] 20-25 mg 00 daily. Medical per tablet Branch lisinopriL- 2019-11 Yes [id number] 1{tbl} Take 1 Univers hydrochloro 1-04 tablet by ity of thiazide 00:00: mouth [place] 20-25 mg 00 daily. Medical per tablet Branch lisinopriL- 2019-11 Yes [id number] 1{tbl} Take 1 Univers hydrochloro 1-04 tablet by ity of thiazide 00:00: mouth [place] 20-25 mg 00 daily. Medical per tablet Branch lisinopriL- 2019-11 Yes [id number] 1{tbl} Take 1 Univers hydrochloro 1-04 tablet by ity of thiazide 00:00: mouth [place] 20-25 mg 00 daily. Medical per tablet Branch lisinopriL- 2019-11 Yes [id number] 1{tbl} Take 1 Univers hydrochloro 1-04 tablet by ity of thiazide 00:00: mouth [place] 20-25 mg 00 daily. Medical per tablet Branch lisinopriL2019-11 Yes [id number] 1{tbl} Take 1 Univers hydrochloro 1-04 tablet [...] l per tablet Branch cholestyram 2018-11 Yes [id number] 4g Take 1 Univers ine light 2-02 Packet by ity o f (CHOLESTYRA 00:00: [place] MINE LIGHT) 00 needed for Me dical 4 gram Itching Branch powder (take when itching 2hours apart from other meds). cholestyram 2018-11 Yes [id number] 4g Take 1 Univers ine light 2-02 Packet by ity o f (CHOLESTYRA 00:[place]: [place] MINE LIGHT) 00 needed for Me dical 4 gram Itching Branch powder (take when itching 2hours apart from other meds). cholestyram 2018-11 Yes [id number] 4g Take 1 Univers ine light 2-02 Packet by ity o f (CHOLESTYRA 00:00: mouth [place] MINE LIGHT) 00 needed for Me dical 4 gram Itching Branch powder (take when itching 2hours apart from other meds). cholestyram 2018-11 Yes [id number] 4g Take 1 Univers ine light 2-02 Packet by ity o f (CHOLESTYRA 00:00: mouth [place] MINE LIGHT) 00 needed for Me dical 4 gram Itching Branch powder (take when itching 2hours apart from other meds). cholestyram 2018-11 Yes [id number] 4g Take 1 Univers ine light 2-02 Packet by ity o f (CHOLESTYRA 00:00: mouth [place] MINE LIGHT) 00 needed for Me dical 4 gram Itching Branch powder (take when itching 2hours apart from other meds). cholestyram 2018-11 Yes [id number] 4g Take 1 Univers ine light 2-02 Packet by ity o f (CHOLESTYRA 00:00: [place] MINE LIGHT) 00 needed for Me dical 4 gram Itching Branch powder (take when itching 2hours apart from other meds). cholestyram 2018-11 Yes [id number] 4g Take 1 Univers ine light 2-02 Packet by ity o f (CHOLESTYRA 00:00: mouth [place] MINE LIGHT) 00 needed for Me dical 4 gram Itching Branch powder (take when itching 2hours apart from other meds). cholestyram 2018-11 Yes [id number] 4g Take 1 Univers ine light 2-02 Packet by ity o f (CHOLESTYRA 00:00: mouth [place] MINE LIGHT) 00 needed for Me dical 4 gram Itching Branch powder (take when itching 2hours apart from other meds). cholestyram 2018-11 Yes [id number] 4g Take 1 Univers ine light 2-02 Packet by ity o f (CHOLESTYRA 00:00: mouth [place] MINE LIGHT) 00 needed for Me dical 4 gram Itching Branch powder (take when itching 2hours apart from other meds). cholestyram 2018-11 Yes [id number] 4g Take 1 Univers ine light 2-02 Packet by ity o f (CHOLESTYRA 00:00: mouth [place] MINE LIGHT) 00 needed for Me dical 4 gram Itching Branch powder (take when itching 2hours apart from other meds). cholestyram 2018-11 Yes [id number] 4g Take 1 Univers ine light 2-02 Packet by ity o f (CHOLESTYRA 00:00: mouth [place] MINE LIGHT) 00 needed for Me dical 4 gram Itching Branch powder (take when itching 2hours apart from other meds). cholestyram 2018-11 Yes [id number] 4g Take 1 Univers ine light 2-02 Packet by ity o f (CHOLESTYRA 00:00: mouth [place] MINE LIGHT) 00 needed for Me dical 4 gram Itching Branch powder (take when itching 2hours apart from other meds). cholestyram 2018-11 Yes [id number] 4g Take 1 Univers ine light 2-02 Packet by ity o f (CHOLESTYRA 00:00: [place] MINE LIGHT) 00 needed for Me dical 4 gram Itching Branch powder (take when itching 2hours apart from other meds). cholestyram 2018-11 Yes [id number] 4g Take 1 Univers ine light 2-02 Packet by ity o f (CHOLESTYRA 00:00: mouth [place] MINE LIGHT) 00 needed for Me dical 4 gram Itching Branch powder (take when itching 2hours apart from other meds). cholestyram 2018-11 Yes [id number] 4g Take 1 Univers ine light 2-02 [...] Medical times Branch daily with meals. naproxen 2018-0 Yes 250mg Take 250 Univ ers 250 [...] 2019-10-22 Completed Univer sity of b) 00:00:00 [facility] Twinrix (hep a/hep 2019-10-22 Completed Univer sity of b) 00:00:00 [facility] Twinrix (hep a/hep 2019-10-22 Completed Univer sity of b) 00:00:00 [facility] (hep a/hep 2019-10-22 Completed Univer sity of b) 00:00:00 [facility] (hep a/hep 2019-10-22 Completed Univer sity of b) 00:00:00 [place] [facility] Twinrix (hep a/hep 2019-10-22 Completed Univer sity of b) 00:00:00 [place] [facility] Twin[facility] (hep a/hep 2019-10-22 Completed Univer sity of b) 00:00:00 [place] [facility] Twin[facility] (hep a/hep 2019-10-22 Completed Univer sity of b) 00:00:00 [place] [facility] Twinrix (hep a/hep 2019-10-22 Completed Univer sity of b) 00:00:00 [place] [facility] Twin[facility] (hep a/hep 2019-10-22 Completed Univer sity of b) 00:00:00 [place] [facility] Twin[facility] (hep a/hep 2019-10-22 Completed Univer sity of b) 00:00:00 [place] [facility] Twinrix (hep a/hep 2019-10-22 Completed Univer sity of b) 00:00:00 [place] [facility] (hep a/hep 2019-10-22 Completed Univer sity of b) 00:00:00 [place] [facility] (hep a/hep 2019-10-22 Completed Univer sity of b) 00:00:00 [place] [facility] Twin[facility] (hep a/hep 2019-10-22 Completed Univer sity of b) 00:00:00 [place] [facility] (hep a/hep 2019-05-14 Completed Univer sity of b) 00:00:00 [place] [facility] Twin[facility] (hep a/hep 2019-05-14 Completed Univer sity of b) 00:00:00 [place] [facility] Twinrix (hep a/hep 2019-05-14 Completed Univer sity of b) 00:00:00 [place] [facility] Twin[facility] (hep a/hep 2019-05-14 Completed Univer sity of b) 00:00:00 [place] [facility] Twinrix (hep a/hep 2019-05-14 Completed Univer sity of b) 00:00:00 [place] [facility] Twin[facility] (hep a/hep 2019-05-14 Completed Univer sity of b) 00:00:00 [place] [facility] Twin[facility] (hep a/hep 2019-05-14 Completed Univer sity of b) 00:00:00 [place] [facility] (hep a/hep 2019-05-14 Completed Univer sity of b) 00:00:00 [place] [facility] (hep a/hep 2019-05-14 Completed Univer sity of b) 00:00:00 [place] [facility] (hep a/hep 2019-05-14 Completed Univer sity of b) 00:00:00 [place] [facility] (hep a/hep 2019-05-14 Completed Univer sity of b) 00:00:00 [place] [facility] (hep a/hep 2019-05-14 Completed Univer sity of b) 00:00:00 [facility] Branch Twinrix (hep a/hep 2019-05-14 Completed Univer sity of b) 00:00:00 [facility] Branch Twinrix (hep a/hep 2019-05-14 Completed Univer sity of b) 00:00:00 [facility] Branch Twinrix (hep a/hep 2019-05-14 Completed Univer sity of b) 00:00:00 [facility] Branch Twinrix (hep a/hep 2019-04-11 Completed Univer sity of b) 00:00:00 [facility] Branch Twinrix (hep a/hep 2019-04-11 Completed Univer sity of b) 00:00:00 [facility] Branch Twinrix (hep a/hep 2019-04-11 Completed Univer sity of b) 00:00:00 [facility] Branch Twinrix (hep a/hep 2019-04-11 Completed Univer sity of b) 00:00:00 [place] [facility] Twin[facility] (hep a/hep 2019-04-11 Completed Univer sity of b) 00:00:00 [facility] Branch Twinrix (hep a/hep 2019-04-11 Completed Univer sity of b) 00:00:00 [facility] Branch Twinrix (hep a/hep 2019-04-11 Completed Univer sity of b) 00:00:00 [facility] Branch Twinrix (hep a/hep 2019-04-11 Completed Univer sity of b) 00:00:00 [facility] Branch Twinrix (hep a/hep 2019-04-11 Completed Univer sity of b) 00:00:00 [facility] Branch Twinrix (hep a/hep 2019-04-11 Completed Univer sity of b) 00:00:00 [place] [facility] (hep a/hep 2019-04-11 Completed Univer sity of b) 00:00:00 [place] [facility] (hep a/hep 2019-04-11 Completed Univer sity of b) 00:00:00 [place] [facility] (hep a/hep 2019-04-11 Completed Univer sity of b) 00:00:00 [place] [facility] (hep a/hep 2019-04-11 Completed Univer sity of b) 00:00:00 [place] [facility] (hep a/hep 2019-04-11 Completed Univer sity of b) 00:00:00 [facility] Vital Signs Vital Name Observation Time Observation Value Comments Source Systolic blood 2020-09-24 16:46:00 172 mm[Hg] Univer sity of pressure [facility] Diastolic blood 2020-09-24 16:46:00 78 mm[Hg] Unive rsity of pressure [facility] Heart rate 2020-09-24 16:46:00 96 /min Universi ty [facility] Body temperature 2020-09-24 16:38:00 36.5 Bernarda Univ ersity of [facility] Body height 2020-09-24 16:38:00 165.1 cm Universi ty [facility] Body weight 2020-09-24 16:38:00 56.518 kg Universi ty [facility] BMI 2020-09-24 16:38:00 20.73 kg/m2 Universi ty [facility] Body height 2020-01-14 21:50:00 165.1 cm Universi ty of [facility] Body weight 2020-01-14 21:50:00 59.421 kg Universi ty [facility] BMI 2020-01-14 21:50:00 21.80 kg/m2 Universi ty [facility] Systolic blood 2019-12-06 15:04:00 156 mm[Hg] Univer sity of pressure [facility] Diastolic blood 2019-12-06 15:04:00 74 mm[Hg] Unive rsity of pressure [facility] Heart rate 2019-12-06 15:04:00 103 /min Universi ty [facility] Respiratory rate 2019-12-06 15:04:00 18 /min [facility] Body height 2019-12-06 15:04:00 165.1 cm [facility] Body weight 2019-12-06 15:04:00 59.421 kg [facility] BMI 2019-12-06 15:04:00 21.80 kg/m2 [facility] Procedures Procedure Date / Time Performed Performing Clinician Sourc e DISABILITY/FMLA 2020-01-24 06:01:00 Doctor Unassigned, No Univer sity [facility] Encounters Start End Encounter Admission Attending Care Care Encounter Source Date/Time Date/Time Type Type Clinicians Facility Department ID 2023-01-01 2023-01-02 Emergency E YEN, SALLIENE [facility] [id number] [facility]NE 15:49:00 00:30:00 MARIAMA 2022-06-04 2022-06-04 Outpatient [facility] [id number] Devoted 03:33:00 03:33:00 0715 Medica l Group 2021-10-30 2021-10-30 Outpatient DM[facility] [id number] [facility] 01:00:00 01:00:00 1210 Medica l Group 2020-12-16 2020-12-16 Antonieta Quick UNIVERSIT [id number] Univers 00:00:00 00:00:00 Zhou Y HEALTH [id number] i ty of [facility] [id number] [id number] [address] 2020-09-26 2020-09-26 Telephone Refugio [facility] [id number] Univers 00:00:00 00:00:00 Deejay Y HEALTH [id number] i ty of [id number] [id number] [address] 2020-09-24 2020-09-24 Plating Department Helper [facility] UNIVERSIT [id number] Univers 12:14:59 12:29:59 Visit Refugio Deejay Y HEALTH [id number] ity of CL[id number] [id number] [facility] [address] [place] 2020-09-24 2020-09-24 Office ELISA Huff 1..840.114 7 [id number] Univers 10:35:11 12:10:01 Visit [facility] [id number] i ty of [id number] [id number] [place] [id number] [place] 2020-09-24 2020-09-24 Outpatient R REFUGIO, [facility] [id number] Univers 11:00:00 11:00:00 [facility] 2020-09-24 2020-09-24 Letter ELISA Huff 1..840.114 7 [id number] Univers 00:00:00 00:00:00 (Out) [facility] [id number] i ty of [id number] [id number] [address] 2020-05-19 2020-05-19 Outpatient R REFUGIO [facility] [id number] Univers 11:00:00 11:00:00 [facility] 2020-04-23 2020-04-23 Outpatient R EMILY [facility] [id number] Univers 13:00:00 13:00:00 KAE ordonez [facility] 2020-02-22 2020-02-22 Ricardo Almeida [facility] [id number] [id number] Univers 00:00:00 00:00:00 Radha Avila [id number] i ty [place] Profess[place] [phone] Va dical nal 044 [facility] 2020-01-28 2020-01-28 Telephone Mason [facility] 1..[id number] [id number] Univers 00:00:00 00:00:00 Maurice S Health [id number] it y of Surgical [id number] [place] as Specialti [phone] Va dical es 198 [facility] 2020-01-24 2020-01-24 Orders Doctor CHRISTY [id number] [id number] Univers 00:00:00 00:00:00 Only Unassigned, ROBERTA [id number] ity of [place] [facility] 4.2.7.2.686 [place] as [id number] [address] 2020-01-18 2020-01-18 [facility] 1.2.840.114 [id number] Univers 00:00:00 00:00:00 Ramírez [place] 350.1.13.10 i ty [place] [id number] Va dical nal 044 [facility] 2020-01-14 2020-01-14 Office [facility] [id number] Univers 15:36:03 16:05:50 Visit [facility] [id number] it y of Surgical [id number] [place] Specialti [id number] [place] dical es 198 [facility] 2020-01-14 2020-01-14 [facility] [id number] Univers 15:45:00 15:45:00 WALTER itsaritha of [facility] 2020-01-14 2020-01-14 Telephone [facility] [id number] [id number] Univers 00:00:00 00:00:00 [facility] [id number] it y of Surgical [id number] [place] Specialti [phone] Va dical es 198 [facility] 2019-12-06 2019-12-06 Office [facility] [id number] Univers 09:03:26 09:23:58 Visit [facility] [id number] it y of Surgical [id number] [place] Specialti [id number] Va dical es 198 [facility] Results This patient has no known results.
[2023-01-09 12:37] LABS: Absolute Lymphocytes (CBC) 1.2 K/uL (0.7-4.9); Hematocrit 28.7 % (36.0-45.0); Lymphocytes % 36.4 % (15.3-44.8); MCV 100.7 fL (80-100); MPV 8.7 fL (7.6-11.3); RBC Red Blood Cell Count 2.85 M/uL (3.86-4.86)
--- NOTE | 2023-01-09 12:49 | RAD REPORT ---
EXAM DESCRIPTION: USExtrem Venous W Compress Bil01/09/2023 12:35 pm CLINICAL HISTORY: Leg swelling COMPARISON: none FINDINGS: The common femoral, superficial femoral, greater saphenous, popliteal and posterior tibial veins bilaterally are compressible and demonstrate augmentation. Doppler demonstrates good flow. Grayscale, color and spectral analysis performed on all vessels IMPRESSION: No evidence of deep venous thrombosis involving either lower extremity.
[2023-01-09 12:57] LABS: Potassium 3.5 mmol/L (3.5-5.1); Troponin High Sensitivity 9.2 pg/mL (<58.9)
[2023-01-09] MEDS ORDERED: CYCLOBENZAPRINE 10 MG TAB ONE (13:05)
[2023-01-09] MEDS ORDERED: TRAMADOL HCL 50 MG TAB ONE (13:06)
--- NOTE | 2023-01-09 13:37 | RAD REPORT ---
EXAM DESCRIPTION: CT - Chest Abdomen Pelvis W Cont - 01/09/2023 1:19 pm CLINICAL HISTORY: Chest and abdominal pain COMPARISON: none TECHNIQUE: Computed axial tomography of the chest, abdomen and pelvis was obtained. 100 cc Isovue-30 0 was administered intravenously. Oral contrast was not requested. This limits evaluation of bowel. All CT scans are performed using dose optimization technique as appropriate and may include automated exposure control or mA/KV adjustment according to patient size. FINDINGS: The lungs are clear No mediastinal or hilar lymphadenopathy. No pleural effusion. No pericardial effusion. Known subacute right proximal humeral fracture. A cirrhotic liver. Spleen mildly enlarged. Splenic granulomata Pancreas, adrenals and kidneys are unremarkable No evidence of diverticulitis 2.2 centimeter calcified uterine fibroid. Normal appendix Small amount of ascites Minimally displaced fracture right inferior pubic ramus subacute IMPRESSION: Minimally displaced fracture right inferior pubic ramus subacute Cirrhosis with small amount of ascites
--- NOTE | 2023-01-09 13:38 | RAD REPORT ---
EXAM DESCRIPTION: Yvonne Single View01/09/2023 12:53 pm CLINICAL HISTORY: Chest pain COMPARISON: 2008 FINDINGS: The lungs appear clear of acute infiltrate. The heart is normal size Subacute right humeral fracture
--- NOTE | 2023-01-09 14:12 | EDPHYS ---
Physician Documentation [facility] Name: Ana Summers Age: 67 yrs Sex: Female : 1955 Arrival Date: 01/09/2023 Time: 10:59 Bed 19 Private MD: ED Physician Jordon Mario HPI: 01/09 17:56 This 67 yrs old Female presents to ER via EMS with complaints of Leg Swelling. kdr 17:56 Patient was brought to the emergency department by EMS. She came because she has been kdr increasingly weak and unable to manage herself at home. According to the daughter the patient is at home by herself during the day (the daughter works 6[employer] 6[employer]). According to the daughter the patient is bound to a couch or loveseat and is unable to get off. She apparently has been soiling herself in that chair due to her inability to move. Patient had fallen about a week ago and suffered a fractured right humerus. She then been seen again for pain in the same area of her right upper arm. That was at this facility. Subsequently, she was discharged home again and continues to have increased swelling and decreased mobility over the last week. Patient is nontoxic-appearing but generally is not wanting to move her lower extremities.. Severity of symptoms: At their worst the symptoms were moderate in the emergency department the symptoms are unchanged. The patient has not experienced similar symptoms in the past. This is the third time in about 10 days that the patient has been seen since her original fall with the right humerus fracture. Historical: - Allergies: 11:08 PENICILLINS; kr3 11:08 Codeine; kr3 - PMHx: 11:08 Arthritis; Hepatitis; C; Hypertension; kr3 - Immunization history:: Adult Immunizations. - Social history:: Smoking status: Patient reports the use of cigarette tobacco products, smokes one pack cigarettes per day. ROS: 17:56 Constitutional: Negative for fever, chills, and weight loss, Eyes: Negative for injury, kdr pain, redness, and discharge, ENT: Negative for injury, pain, and discharge, Neck: Negative for injury, pain, and swelling, Cardiovascular: Negative for chest pain, palpitations, and edema, Respiratory: Negative for shortness of breath, cough, wheezing, and pleuritic chest pain, Abdomen/GI: Negative for abdominal pain, nausea, vomiting, diarrhea, and constipation, Back: Negative for injury and pain. 17:56 Cardiovascular: Positive for edema, orthopnea, palpitations, Negative for chest pain. Exam: 17:56 Constitutional: This is a well developed, well nourished patient who is awake, alert, kdr and in no acute distress. Head/Face: Normocephalic, atraumatic. Eyes: Pupils equal round and reactive to light, extra-ocular motions intact. Lids and lashes normal. Conjunctiva and sclera are non-icteric and not injected. Cornea within normal limits. Periorbital areas with no swelling, redness, or edema. Neck: Trachea midline, no thyromegaly or masses palpated, and no cervical lymphadenopathy. Supple, full range of motion without nuchal rigidity, or vertebral point tenderness. No Meningismus. Chest/axilla: Normal chest wall appearance and motion. Nontender with no deformity. No lesions are appreciated. Cardiovascular: Regular rate and rhythm with a normal S1 and S2. No gallops, murmurs, or rubs. Normal PMI, no JVD. No pulse deficits. Respiratory: Lungs have equal breath sounds bilaterally, clear to auscultation and percussion. No rales, rhonchi or wheezes noted. No increased work of breathing, no retractions or nasal flaring. Abdomen/GI: Soft, non-tender, with normal bowel sounds. No distension or tympany. No guarding or rebound. No evidence of tenderness throughout. Back: No spinal tenderness. No costovertebral tenderness. Full range of motion. Skin: Warm, dry with normal turgor. Normal color with no rashes, no lesions, and no evidence of cellulitis. Neuro: Awake and alert, GCS 15, oriented to person, place, time, and situation. Cranial nerves II-XII grossly intact. Motor strength 5/5 in all extremities. Sensory grossly intact. Cerebellar exam normal. Normal gait. Psych: Awake, alert, with orientation to person, place and time. Behavior, mood, and affect are within normal limits. 17:56 Musculoskeletal/extremity: ROM: limited passive range of motion, Perfusion: the patient is Compartment Syndrome exam of affected extremity: Weight bearing: is unable to bear weight, Tendon exam: Vital Signs: 11:02 BP 159 / 65; Pulse 99; Resp 18; Temp 98.3; Pulse Ox 18% ; Weight 56.7 kg; Height 5 ft. kr3 4 in. (162.56 cm); Pain 8/10; 12:45 BP 146 / 64; Pulse 79; Resp 18; Pulse Ox 100% on R/A; kr3 13:45 BP 154 / 73; Pulse 83; Resp 18; Pulse Ox 100% on R/A; kr3 15:09 BP 147 / 77; Pulse 80; Resp 17; Pulse Ox 100% ; kr3 11:02 Body Mass Index 21.46 (56.70 kg, 162.56 cm) kr3 MDM: 14:11 Patient medically screened. kdr 17:56 Data reviewed: vital signs, nurses notes, lab test result(s), radiologic studies. I kdr considered the following discharge prescriptions or medication management in the emergency department Medications were administered in the Emergency Department. See JAN. 01/09 11:35 Order name: Basic Metabolic Panel [facility] 01/09 11:35 Order name: CBC with Diff kdr 01/09 11:35 Order name: NT PRO-BNP [facility] 01/09 11:35 Order name: Troponin HS kdr 01/09 12:38 Order name: CBC with Automated Diff; Complete Time: 13:20 EDPA 01/09 12:57 Order name: Basic Metabolic Panel; Complete Time: 13:20 EDPA 01/09 11:35 Order name: XRAY Chest (1 view) kdr 01/09 11:35 Order name: US Extremity Venous W Compression Jamal kdr 01/09 11:59 Order name: CT Chest, Abdomen, Pelvis - W/Contrast kdr 01/09 12:50 Order name: US; Complete Time: 13:20 EDPA 01/09 12:57 Order name: Troponin High Sensitivity; Complete Time: 13:20 EDMS 01/09 12:57 Order name: NT PRO-BNP; Complete Time: 13:20 EDPA 01/09 13:37 Order name: CT; Complete Time: 13:45 EDPA 01/09 11:35 Order name: EKG; Complete Time: 11:36 kdr 01/09 11:35 Order name: Cardiac monitoring; Complete Time: 12:30 kdr 01/09 11:35 Order name: EKG - Nurse/Tech; Complete Time: 12:02 kdr 01/09 11:35 Order name: IV Saline Lock; Complete Time: 12:30 kdr 01/09 11:35 Order name: Labs collected and sent; Complete Time: 12:30 kdr 01/09 11:35 Order name: O2 Per Protocol; Complete Time: 12:02 kdr 01/09 11:35 Order name: O2 Sat Monitoring; Complete Time: 12:02 kdr 01/09 13:38 Order name: RAD; Complete Time: 13:45 EDMS Administered Medications: 13:35 Drug: traMADol 100 mg Route: PO; kr3 18:00 Follow up: Response: No adverse reaction vg1 13:35 Drug: Flexeril (cyclobenzaprine) 10 mg Route: PO; kr3 18:00 Follow up: Response: No adverse reaction vg1 Disposition Summary: 01/09/23 16:42 Discharge Ordered Location: Home(01/09/23 16:42) kdr Problem: new(01/09/23 16:42) kdr Symptoms: have improved(01/09/23 16:42) kdr Condition: Stable(01/09/23 16:42) kdr Diagnosis - Subacute right humerus fracture kdr - Pelvic rami fracture kdr - Bilateral lower extremity swelling kdr - Weakness(01/09/23 16:42) kdr Followup: kdr - With: Private Physician - When: 2 - 3 days - Reason: If symptoms return, Further diagnostic work-up, Recheck today's complaints, Continuance of care, Re-evaluation by your physician Followup: kdr - With: Tyron Mcallister MD - When: 1 - 2 days - Reason: If symptoms return, Further diagnostic work-up, Recheck today's complaints, Continuance of care, Re-evaluation by your physician Discharge Instructions: - Discharge Summary Sheet kdr - Simple Pelvic Fracture, Adult kdr - Humerus Fracture Treated With Immobilization, [id number] kdr - Weakness, [id number] kdr Forms: - Medication Reconciliation Form kdr - Thank You Letter kdr - Prescription Opioid Use kdr Prescriptions: - Tramadol 50 mg Oral Tablet - take 1 tablet by ORAL route every 8 hours As needed as needed; 12 tablet; kdr Refills: 0, Product Selection Permitted Signatures: Dispatcher [employer] EDMS Jordon Mario MD MD kdr Gloria Romano RN RN kr3 Hanna Manning RN vg1 Corrections: (The following items were deleted from the chart) 16:38 14:11 Inpatient Admission kdr kdr 16:38 14:11 Ruslan Bautista kdr kdr 16:38 14:11 Telemetry/MedSurg (Inpatient) kdr kdr 16:38 14:11 Fair kdr kdr 16:38 14:11 new kdr kdr 16:38 14:11 have improved kdr kdr 16:38 14:11 Standard kdr kdr 16:38 14:11 kdr kdr 16:38 14:11 Subacute right humerus fracture kdr kdr 16:38 14:11 Weakness kdr kdr 16:38 14:11 Pubic rami fracture kdr kdr 16:38 14:11 Bilateral lower extremity swelling kdr kdr
--- NOTE | 2023-01-09 14:12 | ER ---
Nurse's Notes [facility] Name: Ana Summers Age: 67 yrs Sex: Female : 1955 Arrival Date: 01/09/2023 Time: 10:59 Bed 19 Private MD: Diagnosis: Subacute right humerus fracture;Pelvic rami fracture;Bilateral lower extremity swelling;Weakness Presentation: 01/09 11:02 Chief complaint: EMS states: patient called us due to bilateral lower leg swelling that kr3 started after the fall. patient has been unable to move around at home and laying on couch most of the day. Over the last couple of days the patient has had a loss if sensation in her legs with tingling. patient was seen in [place] a week ago due to fall. Patient has fractured right arm and bruising on right lower jaw from previous fall. Coronavirus screen: Vaccine status: Patient reports being unvaccinated. Ebola Screen: Patient denies travel to an Ebola-affected area in the 21 days before illness onset. Initial Sepsis Screen: Does the patient meet any 2 criteria? No. Patient's initial sepsis screen is negative. Does the patient have a suspected source of infection? No. Patient's initial sepsis screen is negative. Risk Assessment: Do you want to hurt yourself or someone else? Patient reports no desire to harm self or others. Onset of symptoms was January 05, 2023. 11:02 Method Of Arrival: EMS kr3 11:02 Acuity: CODEY 3 kr3 Triage Assessment: 11:10 General: Appears in no apparent distress. uncomfortable, Behavior is calm, cooperative, kr3 appropriate for age. Pain: Complains of pain in right arm, right leg and left leg. EENT: No signs and/or symptoms were reported regarding the EENT system. Neuro: Level of Consciousness is awake, alert, obeys commands, Oriented to person, place, time, situation. Cardiovascular: Patient's skin is warm and dry. Respiratory: Airway is patent Respiratory effort is even, unlabored, Respiratory pattern is regular, symmetrical. GI: No signs and/or symptoms were reported involving the gastrointestinal system. : No signs and/or symptoms were reported regarding the genitourinary system. Derm: Skin with poor turgor. Musculoskeletal: Swelling present in lateral aspect of right calf, right ankle, lateral aspect of right foot, right calf, right Achilles, right heel, medial aspect of right calf, medial aspect of right foot, right méndez, anterior aspect of right ankle, dorsum of right foot and left leg with 2+ pitting edema. Historical: - Allergies: 11:08 PENICILLINS; kr3 11:08 Codeine; kr3 - PMHx: 11:08 Arthritis; Hepatitis; C; Hypertension; kr3 - Immunization history:: Adult Immunizations. - Social history:: Smoking status: Patient reports the use of cigarette tobacco products, smokes one pack cigarettes per day. Screenin:00 [facility] ED Fall Risk Assessment (Adult) History of falling in the last 3 months, vg1 including since admission No falls in past 3 months (0 pts) Confusion or Disorientation No (0 pts) Intoxicated or Sedated No (0 pts) Impaired Gait No (0 pts) Mobility Assist Device Used No (0 pt) Altered Elimination No (0 pt) Score/Fall Risk Level 0 - 2 = Low Risk Oriented to surroundings, Maintained a safe environment, Educated pt \T\ family on fall prevention, incl call for assistance when getting out of bed, Assessed \T\ reinforced patient's understanding of fall precautions, Hourly rounding (assess needs \T\ fall precautionary measures) done. Abuse screen: Denies threats or abuse. Nutritional screening: No deficits noted. Tuberculosis screening: No symptoms or risk factors identified. Assessment: 11:05 Reassessment: see triage note. kr3 12:00 Reassessment: Patient and/or family updated on plan of care and expected duration. Pain kr3 level reassessed. Patient is alert, oriented x 3, equal unlabored respirations, skin warm/dry/pink. 13:00 Reassessment: Patient and/or family updated on plan of care and expected duration. Pain kr3 level reassessed. Patient is alert, oriented x 3, equal unlabored respirations, skin warm/dry/pink. 14:00 Reassessment: Patient and/or family updated on plan of care and expected duration. Pain kr3 level reassessed. Patient is alert, oriented x 3, equal unlabored respirations, skin warm/dry/pink. 15:03 Reassessment: Patient and/or family updated on plan of care and expected duration. Pain kr3 level reassessed. Patient is alert, oriented x 3, equal unlabored respirations, skin warm/dry/pink. Vital Signs: 11:02 BP 159 / 65; Pulse 99; Resp 18; Temp 98.3; Pulse Ox 18% ; Weight 56.7 kg; Height 5 ft. kr3 4 in. (162.56 cm); Pain 8/10; 12:45 BP 146 / 64; Pulse 79; Resp 18; Pulse Ox 100% on R/A; kr3 13:45 BP 154 / 73; Pulse 83; Resp 18; Pulse Ox 100% on R/A; kr3 15:09 BP 147 / 77; Pulse 80; Resp 17; Pulse Ox 100% ; kr3 11:02 Body Mass Index 21.46 (56.70 kg, 162.56 cm) kr3 ED Course: 10:59 Patient arrived in ED. kr3 11:02 Gloria Romano, HARMAN is Primary Nurse. kr3 11:02 Jordon Mario MD is Attending Physician. kdr 11:08 Triage completed. kr3 11:13 Arm band placed on right wrist. Patient placed in an exam room, on a stretcher. kr3 11:15 Bed in low position. Call light in reach. Side rails up X 1. vg1 12:30 Basic Metabolic Panel Sent. kr3 12:30 CBC with Diff Sent. kr3 12:30 NT PRO-BNP Sent. kr3 12:31 Troponin HS Sent. kr3 14:05 Ruslan Bautista MD is Hospitalizing Provider. kdr 16:38 Tyron Mcallister MD is Referral Physician. kdr 18:01 No provider procedures requiring assistance completed. IV discontinued, intact, vg1 bleeding controlled, No redness/swelling at site. Pressure dressing applied. Administered Medications: 13:35 Drug: traMADol 100 mg Route: PO; kr3 18:00 Follow up: Response: No adverse reaction vg1 13:35 Drug: Flexeril (cyclobenzaprine) 10 mg Route: PO; kr3 18:00 Follow up: Response: No adverse reaction vg1 Medication: 18:02 VIS not applicable for this client. vg1 Outcome: 14:11 Decision to Hospitalize by Provider. kdr 16:42 Discharge ordered by . kdr 17:58 Patient left the ED. vg1 18:01 Discharged to home via wheelchair. vg1 18:01 Condition: stable 18:01 Discharge instructions given to patient, Instructed on discharge instructions, follow up and referral plans. medication usage, Demonstrated understanding of instructions, follow-up care, medications, Prescriptions given X 1. Signatures: Jordon Mario MD MD kdr Garcia, Victoria, RN RN vg1 Gloria Romano RN RN kr3 Corrections: (The following items were deleted from the chart) 11:40 11:02 BP 159 / 65; Pulse 99bpm; Resp 100bpm; Pulse Ox 18%; Temp 98.3F; 56.7 kg; Height kr3 5 ft. 4 in.; BMI: 21.4; Pain 8/10; kr3 15:02 15:01 Reassessment: see triage note kr3 kr3 15:02 13:00 Reassessment: Patient appears in no apparent distress at this time. Patient kr3 and/or family updated on plan of care and expected duration. Pain level reassessed. Patient is alert, oriented x 3, equal unlabored respirations, skin warm/dry/pink. kr3 15:02 12:00 Reassessment: see triage note kr3 kr3
--- NOTE | 2023-01-09 16:03 | P.CNS ---
Date of Consult: 01/09/23 Reason for Consult: Pelvic Fracture Requesting Physician: Jordon Mario Primary Care Provider: Junior Campbell Chief Complaint: Pelvic Pain History of Present Illness: Ms. Ana Summers is a pleasant 67 year old female who has a past medical history of hepatitis C cirrhosis and hypertension who presents to the [facility] Emergency Department for pelvic pain. She reports that, on 01/01/2023, she was walking outside a restaurant. She states that she accidentally stepped on a speed bump and sustained a ground- level fall. Since the fall, she has had right upper extremity and pelvis pain. She describes the pain as intermittent and sharp. She has tried taking ibuprofen and Tylenol # 3, with partial alleviation of her symptoms. She recently presented to the Emergency Department on 01/03/2023 and was diagnosed with a mildly impacted proximal right humerus fracture. She was discharged home and followed-up with Dr. Mcallister (Orthopedic Surgery). At this appointment, he recommended Home Health, but this service has not been started yet. On review of systems, she denies any fevers, chills, headaches, dizziness, syncope, chest pain, palpitations, shortness of breath, wheezing, cough, abdominal pain, nausea/vomiting, or any other symptoms. She presented to the Emergency Department for further evaluation. Upon presentation, her vital signs were stable. Her laboratory studies were no table for a hemoglobin of 9.7 and a platelet count of 103,000. Her EKG revealed sinus rhythm without STEMI criteria. Her chest x-ray revealed, "the lungs appear clear of acute infiltrate. The heart is normal size. Subacute right humeral fracture." Bilateral lower extremity Doppler revealed, "no evidence of deep venous thrombosis involving either lower extremity." Her CT chest/abdomen/pelvis revealed, "minimally displaced fracture right inferior pubic ramus subacute. Cirrhosis with small amount of ascites." In the Emergency Department, she was given cyclobenzaprine and tramadol. General Internal Medicine service was consulted for further evaluation. Allergies Penicillins Allergy (Verified 01/09/23 16:11) codeine Adverse Reaction (Verified 01/09/23 16:11) Home medications list reviewed: Yes Home Medications: lisinopriL [Lisinopril] 20 mg PO DAILY 01/09/23 - Past Medical/Surgical History Diabetic: No -: Hepatitis C Cirrhosis -: Hypertension Past Surgical History: Reviewed- Non-Contributory Psychosocial/ Personal History: Family History - Reviewed, non-contributory. - Social History Smoking Status: Current every day smoker Counseled patient to stop smoking for: less than 10 minutes Patient receptive to therapy: No Alcohol use: Yes CD- Drugs: No Review of Systems 10-point ROS is otherwise unremarkable Musculoskeletal: Arm Pain (right), Other (right pelvis pain) Physical Examination - Temperature: 98.3 F - Heart Rate: 88 bpm - Respiratory Rate: 18 breaths/min - Blood Pressure: 159/65 - SpO2: 98% on room air General: Alert, In no apparent distress, Oriented x3 HEENT: PERRLA, Mucous membr. moist/pink, Other (healing brusing along right cheek/jaw), Sclerae nonicteric Neck: Supple, JVD not distended Respiratory: Clear to auscultation bilaterally, Normal air movement Cardiovascular: Regular rate/rhythm, Normal S1 S2, No gallops, No rubs, No murmurs, Edema (trace BLE) Capillary refill: <2 Seconds Gastrointestinal: Normal bowel sounds, Soft and benign, Non-distended, No tenderness, No rebound, No guarding Musculoskeletal: Other (right arm/right hip pain - limited ROM due to pain) Integumentary: No rashes Neurological: Normal speech, Sensation intact, Cranial nerves 3-12 intact, Normal affect Laboratory Data (last 24 hrs) 01/09/23 12:27: WBC 3.40 L, Hgb 9.7 L, Hct 28.7 L, Plt Count 103 L 01/09/23 12:27: Sodium 139, Potassium 3.5, BUN 9, Creatinine 0.59, Glucose 100 Conclusions/Impression: DIAGNOSES: # Traumatic Mechanical Ground-Level Fall complicated by Subacute Minimally Displaced Right Inferior Pubic Ramus Fracture and Subacute Proximal Right Humerus Fracture # Hepatitis C Cirrhosis # Mild Pancytopenia secondary to Cirrhosis # Hypertension # Tobacco Cessation Counseling # Calcified Uterine Fibroid (2.2 cm) RECOMMENDATIONS: - At the time of my evaluation, her pain had nearly resolved with PO cyclobenzaprine and tramadol - I spoke with Dr. Mcallister (Orthopedic Surgery), who saw her earlier this week in clinic - He stated that she looked well in clinic and stated that there is no surgical intervention necessary for her fractures - He recommends weight-bearing as tolerated on her lower extremity, and non- weight bearing on her right upper extremity - He has already set her up with Home Health and she was okay with this plan - I also discussed the option of [facility] facility, and reviewed this with Dr. Mcallister - He said that if she chooses this route, she would need to get the referral from her PCP (Dr. Campbell) - she verbalized understanding - For her cirrhosis, she does not follow with anybody - I gave her the contact information to schedule an appointment with Dr. Romero - After discussing with Dr. Mcallister, we feel that she is stable to be discharged home with family supervision and Home Health - I discussed this plan with her and her daughter, Ms. Martin, who were in agreement - Advised to stop ibuprofen given her anemia and thrombocytopenia - Smoking cessation counseling provided I have reviewed these recommendations with Dr. Mario. Thank you for this consultation. Ruslan Bautista M.D.
[2023-01-09 18:01] VITALS: TEMP 98.3
[2023-01-09 18:02] VITALS: O2SAT 100
[2023-01-09 18:05] VITALS: BP 147/77
--- NOTE | 2023-01-10 12:37 | EKG ---
Test Date: 2023-01-09 Test Time: 11:57:52 Offal Icer Poultry: GARCIA MEASUREMENT RESULTS: Intervals: Rate: 88 MA: 148 QRSD: 90 QT: 398 QTc: 481 [place]: P: 97 MA: 148 QRS: 52 T: 78 INTERPRETIVE STATEMENTS: Sinus rhythm with premature atrial complexes Nonspecific ST abnormality Abnormal ECG Compared to ECG 09/12/2009 10:36:49 Atrial premature complex(es) now present ST (T wave) deviation now present Electronically Signed On 01-10-23 12:35:37 RESAW FEEDER by Albin Carson
== END 2023-01-09 17:58 | disposition home or self-care (01) ==
LOC: ER 10:50
DX: R53.1 Weakness (principal); S42.301A Unspecified fracture of shaft of humerus, right arm, initial encounter for closed fracture; S32.89XA Fracture of other parts of pelvis, initial encounter for closed fracture; R22.43 Localized swelling, mass and lump, lower limb, bilateral; I10 Essential (primary) hypertension; D61.818 Other pancytopenia; B19.20 Unspecified viral hepatitis C without hepatic coma; F17.210 Nicotine dependence, cigarettes, uncomplicated; Z88.0 Allergy status to penicillin; Z88.5 Allergy status to narcotic agent
CPT/HCPCS: 93005; 85025; 80048; 36415; 84484; 83880; 71260; 74177; 71045; 93970; 99284; Q9967